=== PATIENT | male | born 1995 | race Two or more races ===

== ENCOUNTER 2019-01-22 21:15 | Emergency (ER) | payer BC ==
[~2019-01-22] VITALS: Ht 182.9 cm; Wt 86.2 kg
--- NOTE | 2019-01-22 21:21 | NUR ---
CAME IN FOR R EYEBROW LACERATION "I SLIPPED AND FELL WHILE ICE SKATING". (+) ETOH, TO ER BED 7, HOOKED TO MONITOR, CHANGED TO HOSPITAL GOWN, AWAITING MD ORONA.
[2019-01-22] MEDS ORDERED: TDAP [DIPH/PERTUSSIS/TET] 0.5 ML VIAL IM ONE ×2 (22:00→22:18)
[2019-01-22] MEDS ORDERED: LIDOCAINE 1%-EPI 1:100,000 20 ML VIAL ONE (22:23)
--- NOTE | 2019-01-22 22:57 | NUR ---
DR ZIMMER AT BEDSIDE FOR SUTURING
[2019-01-22] MEDS ORDERED: LIDOCAINE 1%-EPI 1:100,000 50 ML VIAL IJ ONE (23:00)
--- NOTE | 2019-01-22 23:25 | NUR ---
Patient discharged to home in stable condition. Written and verbal after care instructions given. Patient verbalizes understanding of instruction.Pt ambulatory with a steady gait
[2019-01-22 23:26] VITALS: BP 142/84
== END 2019-01-22 23:26 | disposition home or self-care (01) ==
LOC: ER 21:18
DX: S01.81XA Laceration without foreign body of other part of head, initial encounter (principal); W01.198A Fall on same level from slipping, tripping and stumbling with subsequent striking against other object, initial encounter; Y93.21 Activity, ice skating; Y92.89 Other specified places as the place of occurrence of the external cause; Y99.8 Other external cause status
CPT/HCPCS: 12013; 90471; 90715; 99283; A6403 ×2; J3490 ×2